=== PATIENT | male | born 1980 | race Caucasian/White ===

== ENCOUNTER 2023-03-06 10:26 | Inpatient (IN) | payer OTHER ==
[2023-03-06 10:49] VITALS: BMI 28.3
[2023-03-06] MEDS ORDERED: NALOXONE HCL 0.4 MG/ML VIAL IM PRN (11:24)
[2023-03-06] MEDS ORDERED: BENZOCAINE/MENTHOL (CHLORASEPTIC ) LOZENGE MM PRN (11:24)
[2023-03-06] MEDS ORDERED: NALOXONE HCL (KLOXXADO) 8 MG SPRAY NS PRN (11:24)
[2023-03-06] MEDS ORDERED: BENZONATATE 200 MG CAPSULE PO PRN (11:24)
[2023-03-06] MEDS ORDERED: IBUPROFEN 600 MG TABLET (FP) PO PRN (11:24)
[2023-03-06] MEDS ORDERED: guaiFENesin 600 MG TABLET.ER (FP) PO PRN (11:24)
[2023-03-06] MEDS ORDERED: BISMUTH SUBSALICYLATE 262 MG/15 ML BTL PO PRN (11:24)
[2023-03-06] MEDS ORDERED: DICYCLOMINE HCL 10 MG CAPSULE PO PRN (11:24)
[2023-03-06] MEDS ORDERED: MAGNESIUM HYDROX 2400MG/30ML ORAL SUSPENSION 30 ML CUP PO PRN (11:24)
[2023-03-06] MEDS ORDERED: IBUPROFEN 400 MG TABLET (FP) PO PRN (11:24)
[2023-03-06] MEDS ORDERED: POLYETHYLENE GLYCOL (HEALTHYLAX) 3350 17 GM PACKET PO PRN (11:24)
[2023-03-06] MEDS ORDERED: LOPERAMIDE HCL 2 MG CAPSULE PO PRN (11:24)
[2023-03-06] MEDS ORDERED: ACETAMINOPHEN 325 MG TABLET (FP) PO PRN (11:24)
[2023-03-06] MEDS ORDERED: P-EPHED 60MG/TRIPROLIDI 2.5MG TABLET PO PRN (11:24)
[2023-03-06 14:10] LABS: HIV INTERPRETATION NEGATIVE (NEGATIVE)
[2023-03-06] MEDS: hydrOXYzine PAMOATE 25 MG CAPSULE (FP) PO PRN (17:38)
[2023-03-06] MEDS: METHOCARBAMOL 500 MG TABLET PO PRN (17:38)
[2023-03-06] MEDS ORDERED: MELATONIN 5 MG TABLETS PO SCH (22:00)
[2023-03-06] MEDS: THIAMINE HCL 100 MG TABLET (FP) PO SCH (22:19)
[2023-03-07] MEDS: METHOCARBAMOL 500 MG TABLET PO PRN (05:50)
[2023-03-07] MEDS: hydrOXYzine PAMOATE 25 MG CAPSULE (FP) PO PRN ×2 (05:50→22:08)
[2023-03-07] MEDS: ONDANSETRON *ODT* 4 MG TABLET SL PRN ×2 (07:45→21:25)
[2023-03-07] MEDS ORDERED: TRIMETHOBENZAMIDE HCL 200MG/2ML INJ IM ONE (07:50)
[2023-03-07 08:50] LABS: POTASSIUM 4.4 mmol/L (3.5-5.1)
[2023-03-07 08:55] LABS: BLOOD UREA NITROGEN 9.9 mg/dL (7-18); HEMATOCRIT 46.8 % (35.4-49); HEMOGLOBIN 15.6 GM/dL (11.7-16.9); MCH 31.8 pg (25.7-33.7); MCHC 33.3 g/dl (32.0-35.9); MEAN CELL VOLUME 95.7 fl (80-96); MEAN PLT VOLUME 7.6 fl (7.5-11.1); PLATELET COUNT 318 10^3/uL (134-434); RBC 4.89 M/mm3 (4.00-5.60); RDW 13.5 % (11.9-15.9); WHITE BLOOD COUNT 10.5 K/mm3 (4.0-10.0)
[2023-03-07 08:59] LABS: BILIRUBIN,TOTAL 0.7 mg/dL (0.2-1); TOT PROT 7.7 g/dl (6.4-8.2)
[2023-03-07] MEDS ORDERED: cloNIDine HCL 0.1 MG TABLET PO ONE (09:03)
[2023-03-07] MEDS ORDERED: BUPRENORPHINE HCL 150 MCG, BUPRENORPHINE HCL 75 MCG BC ONE (09:03)
[2023-03-07] MEDS ORDERED: BUPRENORPHINE HCL 150 MCG, BUPRENORPHINE HCL 75 MCG BC PRN (09:03)
[2023-03-07] MEDS: PRENATAL VITAMINS W/ FOLIC ACID TABLET (FP) PO SCH (09:37)
[2023-03-07] MEDS ORDERED: cloNIDine HCL 0.1 MG TABLET PO PRN (13:03)
[2023-03-07] MEDS ORDERED: METHOCARBAMOL 500 MG TABLET PO PRN (17:53)
[2023-03-07] MEDS: diazePAM 5 MG TABLET PO PRN (18:00)
[2023-03-07] MEDS: MELATONIN 5 MG TABLETS PO SCH (22:05)
[2023-03-07] MEDS: THIAMINE HCL 100 MG TABLET (FP) PO SCH (22:32)
[2023-03-08] MEDS ORDERED: BUPRENORPHINE HCL 150 MCG, BUPRENORPHINE HCL 75 MCG BC PRN
[2023-03-08] MEDS ORDERED: TRIMETHOBENZAMIDE HCL 200MG/2ML INJ IM ONE (02:52)
[2023-03-08] MEDS: BUPRENORPHINE HCL 150 MCG, BUPRENORPHINE HCL 75 MCG BC SCH ×2 (05:47→18:55)
[2023-03-08] MEDS: ONDANSETRON *ODT* 4 MG TABLET SL PRN (09:26)
[2023-03-08] MEDS: PRENATAL VITAMINS W/ FOLIC ACID TABLET (FP) PO SCH (10:19)
[2023-03-08] MEDS: MELATONIN 5 MG TABLETS PO SCH (22:18)
[2023-03-08] MEDS: THIAMINE HCL 100 MG TABLET (FP) PO SCH (22:19)
[2023-03-08] MEDS: diazePAM 5 MG TABLET PO PRN (22:22)
[2023-03-09] MEDS: BUPRENORPHINE HCL 450 MCG FILM BC SCH ×2 (05:59→17:35)
[2023-03-09] MEDS: PRENATAL VITAMINS W/ FOLIC ACID TABLET (FP) PO SCH (10:11)
[2023-03-09] MEDS: ONDANSETRON *ODT* 4 MG TABLET SL PRN (10:12)
[2023-03-09] MEDS ORDERED: TRIMETHOBENZAMIDE HCL 200MG/2ML INJ IM PRN (10:25)
[2023-03-09] MEDS: MELATONIN 5 MG TABLETS PO SCH (22:07)
[2023-03-09] MEDS: THIAMINE HCL 100 MG TABLET (FP) PO SCH (22:07)
[2023-03-09] MEDS: FAMOTIDINE 20 MG TABLET PO SCH (22:07)
[2023-03-10] MEDS: BUPRENORPHINE/NALOXONE 4 MG/1 MG FILM PACKET SL SCH ×2 (06:29→17:09)
[2023-03-10] MEDS: ONDANSETRON *ODT* 4 MG TABLET SL PRN (06:33)
[2023-03-10] MEDS: MAG HYDROX/AL HYDROX/SIMETH 30 ML UNIT-DOSE CUP PO PRN (10:32)
[2023-03-10] MEDS: hydrOXYzine PAMOATE 25 MG CAPSULE (FP) PO PRN (10:33)
[2023-03-10] MEDS: FAMOTIDINE 20 MG TABLET PO SCH ×2 (10:33→21:59)
[2023-03-10] MEDS: PRENATAL VITAMINS W/ FOLIC ACID TABLET (FP) PO SCH (10:33)
[2023-03-10] MEDS: MELATONIN 5 MG TABLETS PO SCH (21:58)
[2023-03-10] MEDS: THIAMINE HCL 100 MG TABLET (FP) PO SCH (22:00)
[2023-03-11] MEDS: MAG HYDROX/AL HYDROX/SIMETH 30 ML UNIT-DOSE CUP PO PRN (05:28)
[2023-03-11 05:51] VITALS: RESP 18
[2023-03-11] MEDS ORDERED: BUPRENORPHINE/NALOXONE 8 MG/2 MG FILM PACKET SL ONE (06:00)
[2023-03-11 09:04] VITALS: BP 124/80; PULSE 77; TEMP 97.5
[2023-03-11] MEDS: hydrOXYzine PAMOATE 25 MG CAPSULE (FP) PO PRN (09:28)
[2023-03-11] MEDS: FAMOTIDINE 20 MG TABLET PO SCH (09:28)
[2023-03-11] MEDS: PRENATAL VITAMINS W/ FOLIC ACID TABLET (FP) PO SCH (09:28)
== END 2023-03-11 12:33 | disposition other institution (70) | DRG 773 ==
LOC: YASAS 10:26 → Y6N 11:40
PROVIDERS: ADMIT Allergy & Immunology; ATTEND Psychiatry & Neurology Pain Medicine
PROC: HZ2ZZZZ Detoxification Services for Substance Abuse Treatment (ICD-10-PCS; principal; 2023-03-06)
DX: F11.23 Opioid dependence with withdrawal (principal); F13.20 Sedative, hypnotic or anxiolytic dependence, uncomplicated; F14.20 Cocaine dependence, uncomplicated; F10.10 Alcohol abuse, uncomplicated; F17.210 Nicotine dependence, cigarettes, uncomplicated; K21.9 Gastro-esophageal reflux disease without esophagitis; R07.9 Chest pain, unspecified; R11.2 Nausea with vomiting, unspecified
CPT/HCPCS: 36415; 80053; 82962; 85027; 86780; 87389; 87635; Q0162

== ENCOUNTER 2023-03-07 09:28 | Emergency (ER) | payer OTHER ==
[2023-03-07] MEDS ORDERED: ONDANSETRON *ODT* 4 MG TABLET SL ONE ×2 (10:19→11:32)
[2023-03-07 10:28] VITALS: RESP 18; BMI 26.6
[2023-03-07] MEDS ORDERED: ONDANSETRON *ODT* 4 MG TABLET ONE ×2 (10:37→11:35)
[2023-03-07] MEDS ORDERED: cloNIDine HCL 0.1 MG TABLET PO ONE (10:40)
[2023-03-07] MEDS ORDERED: cloNIDine HCL 0.1 MG TABLET ONE (10:47)
[2023-03-07] MEDS ORDERED: MAG HYDROX/AL HYDROX/SIMETH 30 ML UNIT-DOSE CUP PO ONE (11:14)
[2023-03-07] MEDS ORDERED: MAG HYDROX/AL HYDROX/SIMETH 30 ML UNIT-DOSE CUP ONE (11:27)
[2023-03-07 11:53] VITALS: TEMP 98.7
[2023-03-07] MEDS ORDERED: METOCLOPRAMIDE HCL 10 MG TABLET (FP) PO ONE ×2 (14:43→14:56)
[2023-03-07] MEDS ORDERED: LIDOCAINE 5% TOPICAL PATCH TP ONE (14:43)
[2023-03-07] MEDS ORDERED: ACETAMINOPHEN 325 MG TABLET (FP) PO ONE (14:44)
[2023-03-07] MEDS ORDERED: ACETAMINOPHEN 325 MG TABLET (FP) ONE (14:56)
[2023-03-07] MEDS ORDERED: LIDOCAINE 4% PATCH TP ONE (14:57)
[2023-03-07 15:35] VITALS: BP 117/71; PULSE 70
[2023-03-07] MEDS ORDERED: LIDOCAINE PATCH REMOVAL MC SCH (22:00)
== END 2023-03-07 16:02 | disposition home or self-care (01) ==
LOC: JER 09:28
DX: R07.9 Chest pain, unspecified (principal); R11.2 Nausea with vomiting, unspecified; R10.13 Epigastric pain
CPT/HCPCS: 93005; 93010; 99283-25; Q0162

== ENCOUNTER 2023-03-08 15:58 | Emergency (ER) | payer OTHER ==
[2023-03-08 16:25] VITALS: BP 115/64; PULSE 64; RESP 16; TEMP 98.3; BMI 26.6
[2023-03-08] MEDS ORDERED: SODIUM CHLORIDE 0.9% 500 ML INFUS.BAG IV ONE (16:44)
[2023-03-08] MEDS ORDERED: cloNIDine HCL 0.1 MG TABLET PO ONE (16:45)
[2023-03-08] MEDS ORDERED: METOCLOPRAMIDE HCL INJECTION 10 MG/2 ML VIAL IVPUSH ONE (16:48)
[2023-03-08] MEDS ORDERED: cloNIDine HCL 0.1 MG TABLET ONE (16:49)
[2023-03-08] MEDS ORDERED: METOCLOPRAMIDE HCL INJECTION 10 MG/2 ML VIAL ONE (17:07)
[2023-03-08] MEDS ORDERED: FAMOTIDINE 20 MG/50 ML IVPB 20 MG/50 ML MG IVPB ONE ×2 (17:07→17:25)
[2023-03-08] MEDS ORDERED: MAG HYDROX/AL HYDROX/SIMETH 30 ML UNIT-DOSE CUP PO ONE (17:07)
[2023-03-08] MEDS ORDERED: MAG HYDROX/AL HYDROX/SIMETH 30 ML UNIT-DOSE CUP ONE (17:25)
[2023-03-08 17:32] LABS: BASO % 0.1 % (0-2.0); HEMATOCRIT 50.8 % (35.4-49); HEMOGLOBIN 17.8 GM/dL (11.7-16.9); LYMPH % 10.8 % (8-40); MCH 32.5 pg (25.7-33.7); MEAN CELL VOLUME 93.1 fl (80-96); MEAN PLT VOLUME 7.5 fl (7.5-11.1); MONO % 7.4 % (3.8-10.2); NEUT % 81.7 % (42.8-82.8); PLATELET COUNT 381 10^3/uL (134-434); RBC 5.46 M/mm3 (4.00-5.60); RDW 13.8 % (11.9-15.9); WHITE BLOOD COUNT 15.7 K/mm3 (4.0-10.0)
[2023-03-08 17:56] LABS: POTASSIUM 4.2 mmol/L (3.5-5.1)
[2023-03-08 17:59] LABS: ALBUMIN 4.6 g/dl (3.4-5.0); MAGNESIUM 2.5 mg/dL (1.8-2.4)
[2023-03-08 18:02] LABS: CREATININE 1.1 mg/dL (0.55-1.3); PHOSPHOROUS 3.8 mg/dL (2.5-4.9)
[2023-03-08 18:03] LABS: TOT PROT 9.5 g/dl (6.4-8.2)
[2023-03-08 18:04] LABS: BILIRUBIN,TOTAL 0.9 mg/dL (0.2-1)
[2023-03-08 18:43] LABS: CALCIUM 10.5 mg/dL (8.5-10.1)
== END 2023-03-08 20:17 | disposition home or self-care (01) ==
LOC: JER 15:58
PROC: 3E033GC Introduction of Other Therapeutic Substance into Peripheral Vein, Percutaneous Approach (ICD-10-PCS; principal; 2023-03-08)
PROC: 3E033GC Introduction of Other Therapeutic Substance into Peripheral Vein, Percutaneous Approach (ICD-10-PCS; 2023-03-08)
DX: R11.2 Nausea with vomiting, unspecified (principal); R10.84 Generalized abdominal pain; M62.81 Muscle weakness (generalized); R53.81 Other malaise; R51.9 Headache, unspecified; R68.83 Chills (without fever); R42 Dizziness and giddiness; F11.23 Opioid dependence with withdrawal
CPT/HCPCS: 36415; 80053; 83690; 83735; 84100; 84484; 85025; 93005; 93010; 99284-25

== ENCOUNTER 2023-03-11 12:46 | Inpatient (IN) | payer OTHER ==
[~2023-03-11 12:46] MED LIST: ACETAMINOPHEN 325 MG TABLET (FP) PO PRN; BENZOCAINE/MENTHOL (CHLORASEPTIC ) LOZENGE MM PRN; BENZONATATE 200 MG CAPSULE PO PRN; COLLOIDAL OATMEAL 1 BAR EACH TP PRN; IBUPROFEN 400 MG TABLET (FP) PO PRN; IBUPROFEN 600 MG TABLET (FP) PO PRN; LOPERAMIDE HCL 2 MG CAPSULE PO PRN; MAG HYDROX/AL HYDROX/SIMETH 30 ML UNIT-DOSE CUP PO PRN; MAGNESIUM HYDROX 2400MG/30ML ORAL SUSPENSION 30 ML CUP PO PRN; METHOCARBAMOL 500 MG TABLET PO PRN; NALOXONE HCL (KLOXXADO) 8 MG SPRAY NS PRN; NALOXONE HCL 0.4 MG/ML VIAL IVPUSH PRN; POLYETHYLENE GLYCOL (HEALTHYLAX) 3350 17 GM PACKET PO PRN; guaiFENesin 600 MG TABLET.ER (FP) PO PRN; hydrOXYzine PAMOATE 25 MG CAPSULE (FP) PO PRN
[2023-03-11] MEDS: MELATONIN 5 MG TABLETS PO SCH (21:41)
[2023-03-11] MEDS: THIAMINE HCL 100 MG TABLET (FP) PO SCH (21:41)
[2023-03-11] MEDS: FAMOTIDINE 20 MG TABLET PO SCH (22:15)
[2023-03-12] MEDS: BUPRENORPHINE/NALOXONE 4 MG/1 MG FILM PACKET SL SCH ×2 (05:41→18:05)
[2023-03-12] MEDS: PRENATAL VITAMINS W/ FOLIC ACID TABLET (FP) PO SCH (09:50)
[2023-03-12] MEDS: FAMOTIDINE 20 MG TABLET PO SCH ×2 (09:50→21:25)
[2023-03-12] MEDS ORDERED: BUPRENORPHINE/NALOXONE 8 MG/2 MG FILM PACKET SL SCH (10:00)
[2023-03-12] MEDS: THIAMINE HCL 100 MG TABLET (FP) PO SCH (21:25)
[2023-03-12] MEDS: MELATONIN 5 MG TABLETS PO SCH (21:25)
[2023-03-13] MEDS: BUPRENORPHINE/NALOXONE 4 MG/1 MG FILM PACKET SL SCH ×2 (06:08→18:37)
[2023-03-13] MEDS: PRENATAL VITAMINS W/ FOLIC ACID TABLET (FP) PO SCH (10:07)
[2023-03-13] MEDS: FAMOTIDINE 20 MG TABLET PO SCH ×2 (10:07→21:13)
[2023-03-13] MEDS: hydrOXYzine PAMOATE 50 MG CAPSULE (FP) PO PRN (13:33)
[2023-03-13] MEDS: THIAMINE HCL 100 MG TABLET (FP) PO SCH (21:13)
[2023-03-13] MEDS: SUVOREXANT 10 MG TABLET PO PRN (21:14)
[2023-03-14] MEDS: BUPRENORPHINE/NALOXONE 4 MG/1 MG FILM PACKET SL SCH ×2 (06:32→18:21)
[2023-03-14] MEDS: PRENATAL VITAMINS W/ FOLIC ACID TABLET (FP) PO SCH (09:52)
[2023-03-14] MEDS: FAMOTIDINE 20 MG TABLET PO SCH ×2 (09:52→21:49)
[2023-03-14] MEDS: SUVOREXANT 10 MG TABLET PO PRN (21:49)
[2023-03-14] MEDS: THIAMINE HCL 100 MG TABLET (FP) PO SCH (21:49)
[2023-03-15] MEDS: BUPRENORPHINE/NALOXONE 4 MG/1 MG FILM PACKET SL SCH ×2 (06:34→17:58)
[2023-03-15] MEDS: PRENATAL VITAMINS W/ FOLIC ACID TABLET (FP) PO SCH (10:17)
[2023-03-15] MEDS: FAMOTIDINE 20 MG TABLET PO SCH ×2 (10:17→22:06)
[2023-03-15] MEDS ORDERED: SUVOREXANT 10 MG TABLET PO PRN ×2 (22:00)
[2023-03-15] MEDS: THIAMINE HCL 100 MG TABLET (FP) PO SCH (22:05)
[2023-03-15] MEDS: SUVOREXANT 15 MG TABLET PO PRN (22:06)
[2023-03-16] MEDS: BUPRENORPHINE/NALOXONE 4 MG/1 MG FILM PACKET SL SCH ×2 (06:37→18:03)
[2023-03-16] MEDS: PRENATAL VITAMINS W/ FOLIC ACID TABLET (FP) PO SCH (10:29)
[2023-03-16] MEDS: FAMOTIDINE 20 MG TABLET PO SCH ×2 (10:30→21:57)
[2023-03-16] MEDS: SUVOREXANT 15 MG TABLET PO PRN (21:57)
[2023-03-16] MEDS: THIAMINE HCL 100 MG TABLET (FP) PO SCH (21:57)
[2023-03-17] MEDS: BUPRENORPHINE/NALOXONE 4 MG/1 MG FILM PACKET SL SCH (05:55)
[2023-03-17] MEDS: PRENATAL VITAMINS W/ FOLIC ACID TABLET (FP) PO SCH (09:39)
[2023-03-17] MEDS: FAMOTIDINE 20 MG TABLET PO SCH ×2 (09:39→21:43)
[2023-03-17] MEDS: BUPRENORPHINE/NALOXONE 2 MG/0.5 MG FILM PACKET SL SCH (18:08)
[2023-03-17] MEDS: SUVOREXANT 15 MG TABLET PO PRN (21:43)
[2023-03-17] MEDS: THIAMINE HCL 100 MG TABLET (FP) PO SCH (21:43)
[2023-03-18] MEDS: BUPRENORPHINE/NALOXONE 2 MG/0.5 MG FILM PACKET SL SCH ×2 (07:00→18:27)
[2023-03-18] MEDS: PRENATAL VITAMINS W/ FOLIC ACID TABLET (FP) PO SCH (11:01)
[2023-03-18] MEDS: FAMOTIDINE 20 MG TABLET PO SCH ×2 (11:01→21:35)
[2023-03-18] MEDS: THIAMINE HCL 100 MG TABLET (FP) PO SCH (21:35)
[2023-03-19] MEDS: BUPRENORPHINE/NALOXONE 2 MG/0.5 MG FILM PACKET SL SCH ×2 (07:10→19:06)
[2023-03-19] MEDS: hydrOXYzine PAMOATE 50 MG CAPSULE (FP) PO PRN (10:47)
[2023-03-19] MEDS: FAMOTIDINE 20 MG TABLET PO SCH ×2 (10:47→21:39)
[2023-03-19] MEDS: PRENATAL VITAMINS W/ FOLIC ACID TABLET (FP) PO SCH (10:47)
[2023-03-19] MEDS: THIAMINE HCL 100 MG TABLET (FP) PO SCH (21:39)
[2023-03-19] MEDS: SUVOREXANT 15 MG TABLET PO PRN (21:41)
[2023-03-20] MEDS: BUPRENORPHINE/NALOXONE 2 MG/0.5 MG FILM PACKET SL SCH ×2 (06:47→19:32)
[2023-03-20] MEDS: FAMOTIDINE 20 MG TABLET PO SCH ×2 (09:52→21:38)
[2023-03-20] MEDS: PRENATAL VITAMINS W/ FOLIC ACID TABLET (FP) PO SCH (09:52)
[2023-03-20] MEDS: SUVOREXANT 15 MG TABLET PO PRN (21:37)
[2023-03-20] MEDS: THIAMINE HCL 100 MG TABLET (FP) PO SCH (21:38)
[2023-03-21] MEDS: BUPRENORPHINE/NALOXONE 2 MG/0.5 MG FILM PACKET SL SCH ×2 (07:06→19:02)
[2023-03-21] MEDS: hydrOXYzine PAMOATE 50 MG CAPSULE (FP) PO PRN ×2 (10:03→21:36)
[2023-03-21] MEDS: PRENATAL VITAMINS W/ FOLIC ACID TABLET (FP) PO SCH (10:03)
[2023-03-21] MEDS: FAMOTIDINE 20 MG TABLET PO SCH ×2 (10:03→21:36)
[2023-03-21] MEDS: THIAMINE HCL 100 MG TABLET (FP) PO SCH (21:36)
[2023-03-21] MEDS ORDERED: SUVOREXANT 15 MG TABLET PO PRN (22:00)
[2023-03-22] MEDS: BUPRENORPHINE/NALOXONE 2 MG/0.5 MG FILM PACKET SL SCH ×2 (06:37→17:59)
[2023-03-22] MEDS: PRENATAL VITAMINS W/ FOLIC ACID TABLET (FP) PO SCH (10:23)
[2023-03-22] MEDS: FAMOTIDINE 20 MG TABLET PO SCH ×2 (10:23→22:02)
[2023-03-22] MEDS: hydrOXYzine PAMOATE 50 MG CAPSULE (FP) PO PRN ×2 (10:23→22:02)
[2023-03-22] MEDS ORDERED: traZODone HCL 50 MG TABLET (FP) PO SCH (22:00)
[2023-03-22] MEDS ORDERED: SUVOREXANT 15 MG TABLET PO PRN (22:00)
[2023-03-22] MEDS: THIAMINE HCL 100 MG TABLET (FP) PO SCH (22:02)
[2023-03-22] MEDS: traZODone HCL 100 MG TABLET (FP) PO PRN (22:02)
[2023-03-23] MEDS: BUPRENORPHINE/NALOXONE 2 MG/0.5 MG FILM PACKET SL SCH ×2 (06:55→17:31)
[2023-03-23] MEDS: FAMOTIDINE 20 MG TABLET PO SCH ×2 (09:54→21:32)
[2023-03-23] MEDS: PRENATAL VITAMINS W/ FOLIC ACID TABLET (FP) PO SCH (09:54)
[2023-03-23] MEDS: hydrOXYzine PAMOATE 50 MG CAPSULE (FP) PO PRN (09:55)
[2023-03-23] MEDS: traZODone HCL 100 MG TABLET (FP) PO PRN (21:32)
[2023-03-23] MEDS: THIAMINE HCL 100 MG TABLET (FP) PO SCH (21:32)
[2023-03-24] MEDS: BUPRENORPHINE/NALOXONE 2 MG/0.5 MG FILM PACKET SL SCH (07:08)
[2023-03-24] MEDS: PRENATAL VITAMINS W/ FOLIC ACID TABLET (FP) PO SCH (09:36)
[2023-03-24] MEDS: FAMOTIDINE 20 MG TABLET PO SCH ×2 (09:37→21:09)
[2023-03-24] MEDS: THIAMINE HCL 100 MG TABLET (FP) PO SCH (21:09)
[2023-03-24] MEDS: traZODone HCL 100 MG TABLET (FP) PO PRN (21:09)
[2023-03-25 06:41] VITALS: BP 123/81; PULSE 97; RESP 18; TEMP 98.1
[2023-03-25] MEDS: PRENATAL VITAMINS W/ FOLIC ACID TABLET (FP) PO SCH (09:52)
[2023-03-25] MEDS: FAMOTIDINE 20 MG TABLET PO SCH (09:52)
== END 2023-03-25 09:55 | disposition home or self-care (01) | DRG 772 ==
LOC: YASAS 12:46 → Y5N 12:50
PROVIDERS: ADMIT Allergy & Immunology; ATTEND Psychiatry & Neurology Pain Medicine
PROC: HZ42ZZZ Group Counseling for Substance Abuse Treatment, Cognitive-Behavioral (ICD-10-PCS; principal; 2023-03-11)
DX: F11.20 Opioid dependence, uncomplicated (principal); F10.20 Alcohol dependence, uncomplicated; F14.20 Cocaine dependence, uncomplicated; F13.10 Sedative, hypnotic or anxiolytic abuse, uncomplicated; F17.210 Nicotine dependence, cigarettes, uncomplicated; F19.280 Other psychoactive substance dependence with psychoactive substance-induced anxiety disorder; F19.282 Other psychoactive substance dependence with psychoactive substance-induced sleep disorder; E78.5 Hyperlipidemia, unspecified; G47.00 Insomnia, unspecified; R07.9 Chest pain, unspecified; R11.2 Nausea with vomiting, unspecified
CPT/HCPCS: 36415; 86803